=== PATIENT | female | born 1950 | race Caucasian/White ===

== ENCOUNTER 2022-01-07 17:12 | Inpatient (IN) | payer OTHER ==
[~2022-01-07] VITALS: Ht 162.6 cm; Wt 71.2 kg
[2022-01-07 17:15] VITALS: BP_SYST 140
[2022-01-07 18:11] LABS: BASOPHILS # (AUTO) 0.1 K/uL (0.0-0.2); EOSINOPHILS # (AUTO) 0.1 K/uL (0.0-0.4); EOSINOPHILS % (AUTO) 1.8 % (0.0-4.0); HEMATOCRIT 23.5 % (36-48); LYMPHOCYTES # (AUTO) 1.5 K/uL (1.0-5.5); LYMPHOCYTES % (AUTO) 21.6 % (20.5-51.5); MEAN CORPUSCULAR HEMOGLOBIN 13 pg (27-31); MEAN CORPUSCULAR HGB CONC 27 % (32-36); MEAN CORPUSCULAR VOLUME 51 fL (79.0-98.0); MONOCYTES # (AUTO) 0.7 K/uL (0.0-1.0); MONOCYTES % (AUTO) 10.3 % (1.7-9.3); NEUTROPHILS # (AUTO) 4.7 K/uL (1.8-7.7); NEUTROPHILS % (AUTO) 65.3 % (40.0-70.0); PLATELET COUNT (AUTO) 398 K/uL (130-430); RED BLOOD CELL COUNT(AUTO) 4.63 MIL/uL (4.2-6.2); WHITE BLOOD COUNT (AUTO) 7.1 K/uL (4.8-10.8)
[2022-01-07 18:16] LABS: ANION GAP 9 (5-15); CHLORIDE 103 mmol/L (98-107); CREATININE 0.66 mg/dL (0.55-1.30); GLUCOSE 135 mg/dL (70-99); UREA NITROGEN, BLOOD 13 mg/dL (8-21)
[2022-01-07 18:22] LABS: HEMOGLOBIN 6.2 g/dL (12.0-16.0)
[2022-01-07 18:23] LABS: CALCIUM 8.9 mg/dL (8.4-11.0)
[2022-01-07 18:31] LABS: TOTAL IRON BIND. CAPACITY 524 ug/dL (250-450)
[2022-01-07] MEDS ORDERED: LIP10 PO (19:59)
[2022-01-07] MEDS ORDERED: CITA40TA22 PO (20:00)
[2022-01-07] MEDS ORDERED: GABA-529 PO (20:00)
[2022-01-07] MEDS ORDERED: QUET400T PO (20:01)
[2022-01-07] MEDS ORDERED: SER100 PO (20:03)
[2022-01-07] MEDS ORDERED: LORA-258 PO (20:03)
[2022-01-07] MEDS ORDERED: TRAZ-250 PO (20:06)
[2022-01-07 21:13] VITALS: BP_SYST 134
[2022-01-07] MEDS ORDERED: ATORVASTATIN 10 MG TABLET PO SCH (22:30)
[2022-01-07] MEDS: QUEtiapine FUMARATE 100 MG TABLET PO SCH (23:01)
[2022-01-07] MEDS: GABAPENTIN 100 MG CAPSULE PO SCH (23:01)
[2022-01-08] VITALS: BP_SYST 108
[2022-01-08] MEDS: GABAPENTIN 100 MG CAPSULE PO SCH ×3 (04:14→20:19)
[2022-01-08] MEDS: QUEtiapine FUMARATE 100 MG TABLET PO SCH ×2 (04:15→20:20)
[2022-01-08 07:12] LABS: ALANINE AMINOTRANSFERASE 18 U/L (12-78); ALBUMIN 3.3 g/dL (3.4-4.8); ANION GAP 11 (5-15); ASPARTATE AMINOTRANSFERASE 14 U/L (10-37); BASOPHILS # (AUTO) 0.1 K/uL (0.0-0.2); BASOPHILS % (AUTO) 1.1 % (0.0-2.0); CALCIUM 8.6 mg/dL (8.4-11.0); CHLORIDE 106 mmol/L (98-107); CREATININE 0.68 mg/dL (0.55-1.30); EOSINOPHILS # (AUTO) 0.3 K/uL (0.0-0.4); EOSINOPHILS % (AUTO) 4.9 % (0.0-4.0); GLUCOSE 109 mg/dL (70-99); HEMATOCRIT 26.7 % (36-48); HEMOGLOBIN 7.6 g/dL (12.0-16.0); LYMPHOCYTES # (AUTO) 1.6 K/uL (1.0-5.5); LYMPHOCYTES % (AUTO) 26.9 % (20.5-51.5); MEAN CORPUSCULAR HEMOGLOBIN 17 pg (27-31); MEAN CORPUSCULAR HGB CONC 29 % (32-36); MEAN CORPUSCULAR VOLUME 60 fL (79.0-98.0); MONOCYTES # (AUTO) 0.7 K/uL (0.0-1.0); NEUTROPHILS # (AUTO) 3.3 K/uL (1.8-7.7); NEUTROPHILS % (AUTO) 55.1 % (40.0-70.0); PLATELET COUNT (AUTO) 315 K/uL (130-430); RED BLOOD CELL COUNT(AUTO) 4.48 MIL/uL (4.2-6.2); TOTAL BILIRUBIN 1.6 mg/dL (0.0-1.0); UREA NITROGEN, BLOOD 9 mg/dL (8-21)
[2022-01-08 07:44] LABS: RED CELL DISTRIBUTION WIDTH 34.8 % (9.0-15.0)
[2022-01-08] MEDS ORDERED: LORazepam 1 MG TABLET PO PRN (12:00)
[2022-01-08] MEDS ORDERED: ACETAMINOPHEN 325 MG TABLET PO PRN (12:00)
[2022-01-08] MEDS ORDERED: traZODone HCL 50 MG TABLET (DESYREL) PO PRN (12:00)
[2022-01-08 12:02] VITALS: BP_SYST 126
[2022-01-08] MEDS ORDERED: SOD FERRIC GLUC COMPLEX/SUC 125 MG in NS 100 ML IV SCH ×2 (13:30→14:00)
[2022-01-08] MEDS ORDERED: IRON DEXTRAN COMPLEX 25 MG in NS 50 ML TEST DOSE IV ONE (15:30)
[2022-01-08 16:07] VITALS: BP_SYST 111
[2022-01-08] MEDS ORDERED: IRON DEXTRAN COMPLEX 75 MG in NS 100 ML IV ONE (17:00)
[2022-01-08 20:19] VITALS: BP_SYST 137
[2022-01-09] VITALS (7 sets, daily range): BP systolic 103–132
[2022-01-09] MEDS: GABAPENTIN 100 MG CAPSULE PO SCH ×4 (03:00→20:20)
[2022-01-09] MEDS: QUEtiapine FUMARATE 100 MG TABLET PO SCH ×3 (03:00→20:21)
[2022-01-09 07:25] LABS: ANION GAP 11 (5-15); CALCIUM 8.7 mg/dL (8.4-11.0); CHLORIDE 105 mmol/L (98-107); CREATININE 0.69 mg/dL (0.55-1.30); GLUCOSE 89 mg/dL (70-99); UREA NITROGEN, BLOOD 12 mg/dL (8-21)
[2022-01-09 08:03] LABS: BASOPHILS # (AUTO) 0.1 K/uL (0.0-0.2); BASOPHILS % (AUTO) 0.7 % (0.0-2.0); EOSINOPHILS # (AUTO) 0.5 K/uL (0.0-0.4); EOSINOPHILS % (AUTO) 4.9 % (0.0-4.0); LYMPHOCYTES # (AUTO) 2.1 K/uL (1.0-5.5); LYMPHOCYTES % (AUTO) 22.6 % (20.5-51.5); MEAN CORPUSCULAR HEMOGLOBIN 18 pg (27-31); MEAN CORPUSCULAR HGB CONC 30 % (32-36); MEAN CORPUSCULAR VOLUME 59 fL (79.0-98.0); MONOCYTES # (AUTO) 0.8 K/uL (0.0-1.0); MONOCYTES % (AUTO) 8.9 % (1.7-9.3); NEUTROPHILS # (AUTO) 5.9 K/uL (1.8-7.7); NEUTROPHILS % (AUTO) 62.9 % (40.0-70.0); PLATELET COUNT (AUTO) 336 K/uL (130-430); RED BLOOD CELL COUNT(AUTO) 4.59 MIL/uL (4.2-6.2); RED CELL DISTRIBUTION WIDTH 34.4 % (9.0-15.0); RETICULOCYTE COUNT 2.9 % (0.5-1.5); WHITE BLOOD COUNT (AUTO) 9.4 K/uL (4.8-10.8)
[2022-01-09] MEDS: CITALOPRAM HYDROBROMIDE 20 MG TABLET PO SCH (09:00)
[2022-01-09] MEDS ORDERED: busPIRone HCL 5 MG TABLET PO ONE (15:45)
[2022-01-09] MEDS: busPIRone HCL 5 MG TABLET PO SCH (20:18)
[2022-01-10] VITALS: BP_SYST 129
[2022-01-10] MEDS: QUEtiapine FUMARATE 100 MG TABLET PO SCH ×2 (02:52→20:41)
[2022-01-10] MEDS: GABAPENTIN 100 MG CAPSULE PO SCH ×3 (02:52→20:46)
[2022-01-10 08:06] LABS: FOLATE (FOLIC ACID) 13.6 ng/mL (>3.0)
[2022-01-10] MEDS: IRON DEXTRAN COMPLEX 100 MG in NS 100 ML IV SCH ×2 (15:27→16:01)
[2022-01-10] MEDS: busPIRone HCL 5 MG TABLET PO SCH ×3 (15:27→20:40)
[2022-01-10] MEDS: CITALOPRAM HYDROBROMIDE 20 MG TABLET PO SCH (15:28)
[2022-01-10] MEDS ORDERED: GABAPENTIN 100 MG CAPSULE PO ONE (16:00)
[2022-01-10] MEDS ORDERED: BISACODYL 5 MG TABLET.DR (DULCOLAX) PO ONE (17:00)
[2022-01-10] MEDS ORDERED: GOLYTELY / COLYTE SOLUTION 4 LITERS PO ONE (18:00)
[2022-01-10 19:00] VITALS: BP_SYST 150
[2022-01-10 20:00] VITALS: BP_SYST 150
[2022-01-11] VITALS: BP_SYST 114
[2022-01-11] MEDS: QUEtiapine FUMARATE 100 MG TABLET PO SCH ×2 (02:04→20:00)
[2022-01-11] MEDS: GABAPENTIN 100 MG CAPSULE PO SCH ×3 (02:04→14:39)
[2022-01-11] MEDS: busPIRone HCL 5 MG TABLET PO SCH ×3 (07:55→20:00)
[2022-01-11 07:57] LABS: PROTHROMBIN TIME 10.3 SECS (9.5-12.5)
[2022-01-11 08:00] VITALS: BP_SYST 126
[2022-01-11 08:16] LABS: BASOPHILS # (AUTO) 0.1 K/uL (0.0-0.2); BASOPHILS % (AUTO) 1.2 % (0.0-2.0); EOSINOPHILS # (AUTO) 0.3 K/uL (0.0-0.4); EOSINOPHILS % (AUTO) 4.9 % (0.0-4.0); HEMATOCRIT 31.2 % (36-48); HEMOGLOBIN 8.7 g/dL (12.0-16.0); LYMPHOCYTES # (AUTO) 1.6 K/uL (1.0-5.5); LYMPHOCYTES % (AUTO) 23.7 % (20.5-51.5); MEAN CORPUSCULAR HEMOGLOBIN 17 pg (27-31); MEAN CORPUSCULAR HGB CONC 28 % (32-36); MEAN CORPUSCULAR VOLUME 61 fL (79.0-98.0); MONOCYTES # (AUTO) 0.6 K/uL (0.0-1.0); MONOCYTES % (AUTO) 8.3 % (1.7-9.3); NEUTROPHILS # (AUTO) 4.3 K/uL (1.8-7.7); NEUTROPHILS % (AUTO) 61.9 % (40.0-70.0); PLATELET COUNT (AUTO) 354 K/uL (130-430); RED BLOOD CELL COUNT(AUTO) 5.15 MIL/uL (4.2-6.2)
[2022-01-11] MEDS: CITALOPRAM HYDROBROMIDE 20 MG TABLET PO SCH (08:59)
[2022-01-11 09:34] LABS: WHITE BLOOD COUNT (AUTO) 6.9 K/uL (4.8-10.8)
[2022-01-11] MEDS: MIDAZOLAM HCL 5 MG/5 ML VIAL ONE ×4 (11:23→11:37)
[2022-01-11] MEDS: MEPERIDINE 100 MG INJ. 100 MG/ML VIAL ONE ×2 (11:23→11:42)
[2022-01-11] MEDS ORDERED: MIDAZOLAM HCL 5 MG/5 ML VIAL ONE (11:45)
[2022-01-11 13:30] VITALS: BP_SYST 136
[2022-01-11 16:35] VITALS: BP_SYST 147
[2022-01-11] MEDS: IRON DEXTRAN COMPLEX 100 MG in NS 100 ML IV SCH (16:48)
[2022-01-11 19:00] VITALS: BP_SYST 132
[2022-01-11 20:00] VITALS: BP_SYST 132
[2022-01-12] VITALS: BP_SYST 91
[2022-01-12] MEDS: GABAPENTIN 100 MG CAPSULE PO SCH ×3 (02:52→21:30)
[2022-01-12] MEDS: QUEtiapine FUMARATE 100 MG TABLET PO SCH ×2 (02:52→21:30)
[2022-01-12 07:24] LABS: BASOPHILS # (AUTO) 0.1 K/uL (0.0-0.2); BASOPHILS % (AUTO) 1.2 % (0.0-2.0); EOSINOPHILS # (AUTO) 0.3 K/uL (0.0-0.4); EOSINOPHILS % (AUTO) 5.4 % (0.0-4.0); HEMATOCRIT 27.7 % (36-48); HEMOGLOBIN 8.4 g/dL (12.0-16.0); LYMPHOCYTES # (AUTO) 1.8 K/uL (1.0-5.5); LYMPHOCYTES % (AUTO) 29.9 % (20.5-51.5); MEAN CORPUSCULAR HEMOGLOBIN 18 pg (27-31); MEAN CORPUSCULAR HGB CONC 30 % (32-36); MEAN CORPUSCULAR VOLUME 61 fL (79.0-98.0); MONOCYTES # (AUTO) 0.6 K/uL (0.0-1.0); MONOCYTES % (AUTO) 10.1 % (1.7-9.3); NEUTROPHILS # (AUTO) 3.3 K/uL (1.8-7.7); NEUTROPHILS % (AUTO) 53.4 % (40.0-70.0); PLATELET COUNT (AUTO) 320 K/uL (130-430); RED BLOOD CELL COUNT(AUTO) 4.54 MIL/uL (4.2-6.2); RED CELL DISTRIBUTION WIDTH 38.3 % (9.0-15.0); WHITE BLOOD COUNT (AUTO) 6.1 K/uL (4.8-10.8)
[2022-01-12 08:00] VITALS: BP_SYST 106
[2022-01-12] MEDS: CITALOPRAM HYDROBROMIDE 20 MG TABLET PO SCH (08:45)
[2022-01-12] MEDS: busPIRone HCL 5 MG TABLET PO SCH ×3 (08:45→21:30)
[2022-01-12 11:10] VITALS: BP_SYST 106
[2022-01-12 16:00] VITALS: BP_SYST 115
[2022-01-12] MEDS: IRON DEXTRAN COMPLEX 100 MG in NS 100 ML IV SCH (17:00)
[2022-01-12 20:00] VITALS: BP_SYST 140
[2022-01-13] VITALS: BP_SYST 105
[2022-01-13] MEDS: GABAPENTIN 100 MG CAPSULE PO SCH ×3 (03:17→21:08)
[2022-01-13] MEDS: QUEtiapine FUMARATE 100 MG TABLET PO SCH ×2 (03:18→21:08)
[2022-01-13 08:00] VITALS: BP_SYST 100
[2022-01-13] MEDS: CITALOPRAM HYDROBROMIDE 20 MG TABLET PO SCH (09:10)
[2022-01-13] MEDS: busPIRone HCL 5 MG TABLET PO SCH ×3 (09:10→21:08)
[2022-01-13 16:00] VITALS: BP_SYST 120
[2022-01-13] MEDS: IRON DEXTRAN COMPLEX 100 MG in NS 100 ML IV SCH (17:40)
[2022-01-13 20:00] VITALS: BP_SYST 127
[2022-01-14 00:32] VITALS: BP_SYST 108
[2022-01-14] MEDS: QUEtiapine FUMARATE 100 MG TABLET PO SCH ×2 (03:14→21:26)
[2022-01-14] MEDS: GABAPENTIN 100 MG CAPSULE PO SCH ×3 (03:14→21:23)
[2022-01-14 08:00] VITALS: BP_SYST 128
[2022-01-14 08:03] LABS: BASOPHILS # (AUTO) 0.1 K/uL (0.0-0.2); BASOPHILS % (AUTO) 1.2 % (0.0-2.0); EOSINOPHILS # (AUTO) 0.3 K/uL (0.0-0.4); EOSINOPHILS % (AUTO) 3.9 % (0.0-4.0); HEMATOCRIT 31.3 % (36-48); HEMOGLOBIN 9.5 g/dL (12.0-16.0); LYMPHOCYTES # (AUTO) 1.8 K/uL (1.0-5.5); LYMPHOCYTES % (AUTO) 24.2 % (20.5-51.5); MEAN CORPUSCULAR HEMOGLOBIN 19 pg (27-31); MEAN CORPUSCULAR HGB CONC 30 % (32-36); MEAN CORPUSCULAR VOLUME 63 fL (79.0-98.0); MONOCYTES # (AUTO) 0.8 K/uL (0.0-1.0); MONOCYTES % (AUTO) 10.3 % (1.7-9.3); NEUTROPHILS # (AUTO) 4.5 K/uL (1.8-7.7); NEUTROPHILS % (AUTO) 60.4 % (40.0-70.0); PLATELET COUNT (AUTO) 304 K/uL (130-430); RED BLOOD CELL COUNT(AUTO) 4.96 MIL/uL (4.2-6.2); RED CELL DISTRIBUTION WIDTH 39.7 % (9.0-15.0)
[2022-01-14 08:58] LABS: WHITE BLOOD COUNT (AUTO) 7.5 K/uL (4.8-10.8)
[2022-01-14] MEDS: busPIRone HCL 5 MG TABLET PO SCH ×3 (09:32→21:24)
[2022-01-14] MEDS: CITALOPRAM HYDROBROMIDE 20 MG TABLET PO SCH (09:32)
[2022-01-14 13:54] VITALS: BP_SYST 123
[2022-01-14 15:48] VITALS: BP_SYST 145
[2022-01-14 16:00] VITALS: BP_SYST 138
[2022-01-14] MEDS: IRON DEXTRAN COMPLEX 100 MG in NS 100 ML IV SCH (16:06)
[2022-01-14 20:00] VITALS: BP_SYST 141; BP_SYST 98
[2022-01-15 00:12] VITALS: BP_SYST 105; BP_SYST 164
[2022-01-15] MEDS: QUEtiapine FUMARATE 100 MG TABLET PO SCH (03:00)
[2022-01-15] MEDS: GABAPENTIN 100 MG CAPSULE PO SCH (03:00)
[2022-01-15 08:00] VITALS: BP_SYST 101
[2022-01-15] MEDS: busPIRone HCL 5 MG TABLET PO SCH (08:34)
[2022-01-15] MEDS: CITALOPRAM HYDROBROMIDE 20 MG TABLET PO SCH (08:35)
== END 2022-01-15 10:45 | DRG 392 ==
LOC: SED 17:12 → SMU 19:34
PROVIDERS: ADMIT Family Medicine; ATTEND Family Medicine
PROC: 30233N1 Transfusion of Nonautologous Red Blood Cells into Peripheral Vein, Percutaneous Approach (ICD-10-PCS; principal; 2022-01-07)
PROC: 0DB98ZX Excision of Duodenum, Via Natural or Artificial Opening Endoscopic, Diagnostic (ICD-10-PCS; 2022-01-11)
PROC: 0DB78ZX Excision of Stomach, Pylorus, Via Natural or Artificial Opening Endoscopic, Diagnostic (ICD-10-PCS; 2022-01-11)
PROC: 0DJD8ZZ Inspection of Lower Intestinal Tract, Via Natural or Artificial Opening Endoscopic (ICD-10-PCS; 2022-01-11 11:00)
DX: K29.70 Gastritis, unspecified, without bleeding (principal); E44.0 Moderate protein-calorie malnutrition; K57.30 Diverticulosis of large intestine without perforation or abscess without bleeding; K64.8 Other hemorrhoids; K44.9 Diaphragmatic hernia without obstruction or gangrene; D50.9 Iron deficiency anemia, unspecified; E78.5 Hyperlipidemia, unspecified; F41.9 Anxiety disorder, unspecified; R13.10 Dysphagia, unspecified; F31.9 Bipolar disorder, unspecified; Z20.822 Contact with and (suspected) exposure to COVID-19; E80.6 Other disorders of bilirubin metabolism; Z88.2 Allergy status to sulfonamides; Z91.041 Radiographic dye allergy status; Z79.899 Other long term (current) drug therapy
CPT/HCPCS: 36415; 43239; 45378; 80048; 80053; 82272; 82607; 82728; 82746; 83010; 83540; 83550; 83735; 85025; 85044; 85610-TC; 86886; 86900; 86901; 86920; 87081; 88305; 88312; 88313; 99285; J1750; J2175; J2250; J2916; J7040; P9021